=== PATIENT | male | born 1960 | race Caucasian/White ===

== ENCOUNTER 2019-04-07 08:11 | Day surgery (SDC) | payer OTHER ==
[2019-04-06 09:07] VITALS: BMI 30.4
[~2019-04-07 08:11] MED LIST: LACTATED RINGERS 1,000 ML IV SCH; LIDOCAINE 1% 20 ML VIAL (10MG/ML) FOR IV START INTRADERMA PRN; MOXIFLOXACIN HCL 0.5% DROPS 3 ML BTL OP ONE; TETRACAINE 0.5% OPHTH (PF) DROPS 4 ML BTL OP SCH; TIMOLOL 0.5% OPHTH DROPS 5 ML BTL OP ONE
[2019-04-07] MEDS: CYCLOPENTOLATE 1% OPHTH SOLN 2 ML BTL OP SCH ×3 (09:34→09:49)
[2019-04-07] MEDS: PHENYLEPHRINE 2.5% OPHTH DRP 2ML OP SCH ×3 (09:37→09:54)
[2019-04-07 09:38] VITALS: BP 120/64; PULSE 67; RESP 16; TEMP 97.9
== END 2019-04-07 10:59 | disposition home or self-care (01) ==
LOC: OR 08:11
PROVIDERS: ATTEND Ophthalmology
DX: H25.042 Posterior subcapsular polar age-related cataract, left eye (principal); Z53.09 Procedure and treatment not carried out because of other contraindication; Q12 Congenital lens malformations; H55.03 Visual deprivation nystagmus; H53.01 Deprivation amblyopia; H00.026 Hordeolum internum left eye, unspecified eyelid; H00.023 Hordeolum internum right eye, unspecified eyelid; H04.129 Dry eye syndrome of unspecified lacrimal gland; H52.223 Regular astigmatism, bilateral; H52.4 Presbyopia; H52.03 Hypermetropia, bilateral; I10 Essential (primary) hypertension; E78.5 Hyperlipidemia, unspecified; G83.24 Monoplegia of upper limb affecting left nondominant side; Z88.2 Allergy status to sulfonamides; Z79.82 Long term (current) use of aspirin; Z79.899 Other long term (current) drug therapy; Z87.891 Personal history of nicotine dependence; Z97.3 Presence of spectacles and contact lenses; Z82.49 Family history of ischemic heart disease and other diseases of the circulatory system; E66.9 Obesity, unspecified; Z68.32 Body mass index [BMI] 32.0-32.9, adult

== ENCOUNTER 2019-05-05 09:21 | Day surgery (SDC) | payer OTHER ==
[2019-04-30 12:56] VITALS: BMI 31.2
[~2019-05-05 09:21] MED LIST changes: +DEXAMETHASONE SOD PHOSPHATE 10 MG/ML 1 ML VIAL IV ONE; +MORPHINE SULFATE 4 MG/ML SYRINGE IV PRN; +TETRACAINE 0.5% OPHTH (PF) DROPS 4 ML BTL OP ONE; -TETRACAINE 0.5% OPHTH (PF) DROPS 4 ML BTL OP SCH
[2019-05-05] MEDS: CYCLOPENTOLATE 1% OPHTH SOLN 2 ML BTL OP ONE ×3 (09:50→10:03)
[2019-05-05] MEDS: PHENYLEPHRINE 2.5% OPHTH DRP 2ML OP NR ×3 (09:53→10:06)
[2019-05-05 10:04] VITALS: TEMP 98.2
[2019-05-05] MEDS ORDERED: LIDOCAINE 1% (PF) 10MG/ML VIAL SQ ONE (10:41)
[2019-05-05] MEDS ORDERED: BALANCED SALT IRRIG SOLN COMB2 15 ML IRRIG.SOLN IRRIGATION ONE (10:41)
[2019-05-05] MEDS ORDERED: HYALURONATE SODIUM INTRAOCULAR 1 EACH SYRINGE (12MG/ML) INTRAOCULA ONE (10:41)
[2019-05-05] MEDS ORDERED: EPINEPHrine (PF) 0.3 ML in BALANCED SALT IRRIG SOLN COMB2 500 ML IRRIGATION ONE (10:42)
[2019-05-05] MEDS ORDERED: fentaNYL (PF) 50 MCG/ML 2 ML AMP ONE (10:45)
[2019-05-05] MEDS ORDERED: MIDAZOLAM 2 MG/2 ML VIAL ONE (10:45)
--- NOTE | 2019-05-05 11:20 | P.OP ---
Date of Procedure: 05/05/19 Preoperative Diagnosis: NS & PSC & reg astig Postoperative Diagnosis: same Procedure(s) Performed: PIOL, OS Implants: [id number] 25.5.x 1.25 Anesthesia: MAC Surgeon: Atilio Stringer Estimated Blood Loss (ml): 0 Pathology: none sent Condition: stable Disposition: same day Indications for Procedure: blurry vision Operative Findings: no complications
[2019-05-05 11:29] VITALS: RESP 16
[2019-05-05 11:56] VITALS: BP 110/71; PULSE 67
--- NOTE | 2019-05-06 05:46 | OP ---
OPERATIVE REPORT DATE OF SURGERY: 05/05/2019. PROCEDURE: Phacoemulsification of cataract and intraocular lens implant of the left eye. PREOPERATIVE DIAGNOSES: Nuclear sclerosis and posterior subcapsular cataract and regular astigmatism. POSTOPERATIVE DIAGNOSES: Nuclear sclerosis and posterior subcapsular cataract and regular astigmatism. SURGEON: Dr. Atilio Stringer. ANESTHESIA: Topical. ESTIMATED BLOOD LOSS: None. SPECIMEN TAKEN: None. NARRATIVE: After obtaining the appropriate consent, the patient was brought to the operating room there he was asked to sit upright and the axes of zero and 180 degrees were identified and marked with a gentian haresh marker. He was then placed in the proper supine position, prepped and draped in the usual sterile manner and placed under cardiac monitoring. He was approached from his left temporal side and using previously acquired corneal topography information the axis of 87 degrees was identified and marked with a corneal axis marker. At the 5 o'clock position an MVR blade was used to create a paracentesis port. Through this opening 1% Xylocaine MPF 50:50 mix with balanced salt solution was injected into the anterior chamber. This was followed by stabilization of the anterior chamber with Amvisc. At the 3 o'clock position, a 2.5 mm keratome was used to create a self-sealing corneal flap incision. Through this opening a cystotome was introduced to begin a continuous tear capsulorrhexis which was completed using the Utrata forceps. Hydrodissection and hydrodelineation of the lens was accomplished with balanced salt solution. Phacoemulsification lens utilizing phaco chop was accomplished in 3.95 seconds at 9% power. Additional Xylocaine MPF was instilled into the anterior chamber. This was followed by removal of the remaining cortex under irrigation and aspiration along with careful polishing of the posterior capsule in the capsule vacuum mode. Amvisc was then used to stabilize the capsular bag and a Bausch and Lomb MX60T 25.5 diopter by 1.25 cylinder diopter lens was placed in the capsular bag without difficulty. The remaining viscoelastic was then removed from in and around the intraocular lens as well as the anterior chamber. Once the viscoelastic was removed, the final alignment of the lens with the previously placed corneal silva at 87 degrees was finished. The lens was then tamponaded slightly to ensure stability at that position. The eye was then brought to normal intraocular pressures through the paracentesis port and the incisions were confirmed watertight. He then received 2 drops of moxifloxacin as well as 0.5% timolol. He was then lightly patched and shielded in the usual manner. There were no complications from the procedure. He tolerated the procedure well and was returned to outpatient recovery in good condition. KEON / DARLEEN: [id number] /
== END 2019-05-05 12:04 | disposition home or self-care (01) ==
LOC: OR 09:21
PROVIDERS: ATTEND Ophthalmology
DX: H25.812 Combined forms of age-related cataract, left eye (principal); H52.223 Regular astigmatism, bilateral; H52.4 Presbyopia; H52.03 Hypermetropia, bilateral; Q12 Congenital lens malformations; H55.03 Visual deprivation nystagmus; H53.01 Deprivation amblyopia; H00.026 Hordeolum internum left eye, unspecified eyelid; H00.023 Hordeolum internum right eye, unspecified eyelid; H04.129 Dry eye syndrome of unspecified lacrimal gland; H53.039 Strabismic amblyopia, unspecified eye; I10 Essential (primary) hypertension; E78.5 Hyperlipidemia, unspecified; G83.24 Monoplegia of upper limb affecting left nondominant side; Z87.891 Personal history of nicotine dependence; Z97.3 Presence of spectacles and contact lenses; Z79.82 Long term (current) use of aspirin; Z79.899 Other long term (current) drug therapy; Z88.2 Allergy status to sulfonamides; Z82.49 Family history of ischemic heart disease and other diseases of the circulatory system
CPT/HCPCS: 66984; V2787; C1780; J2250; J0171; J3010; J2001

== ENCOUNTER → 2019-06-09 | Day surgery (SDC) | payer OTHER ==
[2019-06-07 12:45] VITALS: BMI 31.5
[~2019-06-09] MED LIST changes: +BALANCED SALT IRRIG SOLN COMB2 15 ML IRRIG.SOLN INTRAOCULA ONE; +EPINEPHrine (PF) 0.3 ML in BALANCED SALT IRRIG SOLN COMB2 500 ML IRRIGATION ONE; +HYALURONATE SODIUM INTRAOCULAR 1 EACH SYRINGE (12MG/ML) INTRAOCULA ONE; +LIDOCAINE 1% (PF) 10MG/ML VIAL MISCELLANE ONE; +MIDAZOLAM 2 MG/2 ML VIAL ONE; -MORPHINE SULFATE 4 MG/ML SYRINGE IV PRN; +ONDANSETRON 4 MG/2 ML VIAL IVP ONE; +fentaNYL (PF) 50 MCG/ML 2 ML AMP ONE
[2019-06-09 11:10] VITALS: RESP 16; TEMP 97.3
[2019-06-09] MEDS: CYCLOPENTOLATE 1% OPHTH SOLN 2 ML BTL OP ONE ×3 (11:13→11:25)
[2019-06-09] MEDS: PHENYLEPHRINE 2.5% OPHTH DRP 2ML OP NR ×3 (11:16→11:28)
--- NOTE | 2019-06-09 12:30 | P.OP ---
Date of Procedure: 06/09/19 Preoperative Diagnosis: NS Postoperative Diagnosis: same Procedure(s) Performed: PIOL, OD Implants: MX60 23.50 Anesthesia: MAC Surgeon: Atilio Stringer Pathology: none sent Condition: stable Disposition: same day Indications for Procedure: blurry vision Operative Findings: no complications
[2019-06-09 13:00] VITALS: BP 108/69; PULSE 69
--- NOTE | 2019-06-10 07:29 | OP ---
OPERATIVE REPORT DATE OF SURGERY: 06/09/2019. PROCEDURES: Phacoemulsification of the cataract and intraocular lens implant of the right eye. PREOPERATIVE DIAGNOSIS: Nuclear sclerosis. POSTOPERATIVE DIAGNOSIS: Nuclear sclerosis. ESTIMATED BLOOD LOSS: Zero. SPECIMEN TAKEN: None. NARRATIVE: After obtaining the appropriate consent, the patient was brought to the Operating Room where the patient was placed under cardiac monitoring and prepped and draped in the usual sterile manner. At the 11 o'clock position a 15 degree super sharp blade was used to create a paracentesis followed by instillation of 1% Xylocaine MPF 50:50 mix with BSS into the anterior chamber. This was followed by Amvisc to stabilize the anterior chamber. At the 9 o'clock position a self-sealing corneal flap incision was created using 2.8 mm edwin keratome. A cystotome was used to initiate a continuous tear capsulorrhexis which was completed with the Utrata forceps. A Binkhorst cannula was used to hydrodissect the lens nucleus followed by hydrodelineation. Phacoemulsification of the lens was performed utilizing phacochop in 7.51 seconds at 12% power. The remaining cortical material was removed using the irrigation aspiration mode followed by additional 1% Xylocaine MPF into the anterior chamber followed by viscoelastic to stabilize the capsular bag. A Bausch and Lomb MX 60E 23.5 diopters posterior chamber lens was placed into the capsular bag without difficulty. The remaining viscoelastic material was removed from the anterior chamber with the irrigation/aspiration. Balanced salt solution was used to normalize the intraocular pressure. The incision was checked for watertight integrity. The patient then received two drops of 0.5% timolol followed by two drops Vigamox, was lightly patched and shielded in the usual manner. There were no complications from the procedure. The patient tolerated the procedure well and was returned to recovery in good condition. MMODL / IJN: [id number] /
== END | disposition home or self-care (01) ==
LOC: OR 09:53
PROVIDERS: ATTEND Ophthalmology
DX: H25.11 Age-related nuclear cataract, right eye (principal); H55.03 Visual deprivation nystagmus; H53.01 Deprivation amblyopia; Q12 Congenital lens malformations; H00.026 Hordeolum internum left eye, unspecified eyelid; H00.023 Hordeolum internum right eye, unspecified eyelid; H04.129 Dry eye syndrome of unspecified lacrimal gland; H52.223 Regular astigmatism, bilateral; H52.4 Presbyopia; H52.03 Hypermetropia, bilateral; I10 Essential (primary) hypertension; E78.5 Hyperlipidemia, unspecified; Z98.42 Cataract extraction status, left eye; Z96.1 Presence of intraocular lens; Z88.2 Allergy status to sulfonamides; Z79.899 Other long term (current) drug therapy; Z82.49 Family history of ischemic heart disease and other diseases of the circulatory system; Z87.891 Personal history of nicotine dependence; Z97.3 Presence of spectacles and contact lenses; Z48.810 Encounter for surgical aftercare following surgery on the sense organs
CPT/HCPCS: 66984; V2632; J2250; J1100; J2405; J0171; J3010; J2001

== ENCOUNTER → 2023-10-10 | Outpatient (CLI) | payer BC ==
--- NOTE | 2023-10-12 18:04 | MR ---
EXAMINATION TYPE: MR Prostate wo/w con DATE OF EXAM: 10/10/2023 9:53 AM COMPARISON: None. CLINICAL INDICATION:Male, 63 years old with history of R97.20 ELEVATED PROSTATE SPECIFIC ANTIGEN [PSA ]; Elevated PSA, hx of biopsy TECHNIQUE: Multi-planar, multi-sequence imaging of the pelvis is performed prior to and following the uncomplicated administration of bolus intravenous gadolinium. CONTRAST: 9 Gadavist Interpretive Criteria: PI-RADS v2.1 SERUM PSA: PSA =5.2, =6.07 SURGICAL PATHOLOGY: No data available. FINDINGS: Prostatic dimensions: 5.0 x 6.2 x 4.8 cm. Ellipsoid Volume:77.91 (PSA density=0.09 ng/mL/mL) CENTRAL GLAND (Central and Transition Zones/CZ+TZ): Multiple bilateral, heterogenous appearing hypertrophic stromal nodules, without suspicious lesion. M edian lobe hypertrophy with protrusion into the base of the bladder. (PI-RADS 2) PERIPHERAL ZONE (PZ): Bilateral linear, indistinct wedgelike areas of low ADC, and low T2 signal, No evidence of masslike a bnormality, or localized perfusional hypervascularity, to further suggest a focus of clinically signi ficant prostate cancer. (PI-RADS 2) SEMINAL VESICLES (SV): Symmetric and unremarkable. PERIPROSTATIC TISSUES: Unremarkable. LYMPH NODES: No enlarged pelvic lymph node. REMAINING PELVIS: Bladder wall is within normal limits given distention. No abnormal free or organized intrapelvic fluid collection. No pathologic bowel dilation or mural thickening. Bilateral fat containing inguinal hernias. OSSEOUS STRUCTURES: No suspicious osseous abnormality. IMPRESSION: 1. No specific features for high-risk prostate cancer. Maximum PI-RADS score: 2. 2. Moderate BPH, estimated gland volume 77.91 mL. 3. No suspicious osseous lesion. No lymphadenopathy. No evidence of prostate adenocarcinoma involving the periprostatic tissues.
== END | disposition home or self-care (01) ==
LOC: RADMRIMAIN 08:40
PROVIDERS: ATTEND Urology
DX: N40.0 Benign prostatic hyperplasia without lower urinary tract symptoms (principal); R97.20 Elevated prostate specific antigen [PSA]
CPT/HCPCS: 72197; A9585